=== PATIENT | female | born 2000 | race African-American/Black ===

== ENCOUNTER 2023-03-30 08:18 | Outpatient (CLI) | payer OTHER | END 2023-03-30 08:24 | disposition home or self-care (01) | LOC: PRENATAL 08:18 | PROVIDERS: ATTEND Obstetrics & Gynecology Maternal & Fetal Medicine | DX: O35.9XX0 Maternal care for (suspected) fetal abnormality and damage, unspecified, not applicable or unspecified (principal); O35.3XX0 Maternal care for (suspected) damage to fetus from viral disease in mother, not applicable or unspecified; O44.00 Complete placenta previa NOS or without hemorrhage, unspecified trimester; Z3A.19 19 weeks gestation of pregnancy ==

== ENCOUNTER 2023-05-10 19:31 | Inpatient (IN) | payer OTHER ==
[~2023-05-10] VITALS: Ht 157.5 cm; Wt 0.5 kg
[2023-05-10] MEDS ORDERED: PRENATAL TABLE1 EAC1 (20:13)
[2023-05-10] MEDS ORDERED: ASA81 MG PO (20:13)
[2023-05-10] MEDS ORDERED: RINGERS SOLUTION,LACTATED 1,000 ML IV SCH (20:30)
[2023-05-10 20:48] LABS: HEMATOCRIT 35.1 % (36.0-45.00); MEAN CELL VOLUME 90.5 fL (80.00-100.00); MEAN CORPUSCULAR HEMOGLOBIN 30.9 pg (27.00-32.0); MEAN CORPUSCULAR HGB CONC 34.1 g/dl (32.0-36.0); PLATELET COUNT 336 K/uL (150-450); RED BLOOD COUNT 3.88 M/uL (4.00-6.00); RED CELL DISTRIBUTION WIDTH 14.7 % (11.5-14.5); URINE APPEARANCE Turbid; URINE BILIRRUBIN Negative (NEGATIVE); URINE BLOOD Trace; URINE COLOR Yellow; URINE GLUCOSE Negative (NEGATIVE); URINE LEUKOCYTE Large; URINE NITRATE Negative; URINE PROTEIN 30 (NEGATIVE)
[2023-05-10 20:51] LABS: URINE EPITHELIAL CELLS 58.4 uL (0.0-38.8); URINE RBC 24.5 uL (0.0-20.8)
[2023-05-10 21:14] LABS: URINE WBC > 5548.3 uL (0.0-23.2)
[2023-05-10 21:15] LABS: URINE CRYSTALS FEW /HPF
[2023-05-10] MEDS ORDERED: BETAMETHASONE ACETATE,SOD PHOS 30 MG/5 ML ML ONE (22:21)
[2023-05-10] MEDS ORDERED: MAGNESIUM SULFATE IN WATER 4 GM/100 ML PIGGYBACK IV ONE (22:25)
[2023-05-10] MEDS ORDERED: INDOMETHACIN 25 MG CAPSULE PO SCH (23:14)
[2023-05-10] MEDS ORDERED: BETAMETHASONE ACETATE,SOD PHOS 30 MG/5 ML ML IM ONE (23:15)
[2023-05-10] MEDS ORDERED: AMPICILLIN SODIUM 2,000 MG VIAL IV ONE (23:15)
[2023-05-10] MEDS ORDERED: MAGNESIUM SULFATE IN WATER 4 GM/100 ML PIGGYBACK IV SCH (23:15)
[2023-05-10] MEDS ORDERED: MAGNESIUM SULFATE IN WATER 500 ML IV SCH (23:15)
[2023-05-10] MEDS ORDERED: INDOMETHACIN 50 MG CAPSULE PO ONE (23:15)
[2023-05-11] MEDS ORDERED: AMPICILLIN SODIUM 1,000 MG VIAL IV SCH (01:00)
[2023-05-11] MEDS ORDERED: INDOMETHACIN 25 MG CAPSULE PO SCH ×2 (06:00→08:00)
[2023-05-11] MEDS ORDERED: BETAMETHASONE ACETATE,SOD PHOS 30 MG/5 ML ML IM ONE (22:45)
[2023-05-13] MEDS ORDERED: MAGNESIUM SULFATE IN WATER 4 GM/100 ML PIGGYBACK IV ONE (04:21)
[2023-05-13] MEDS ORDERED: CHLORHEXIDINE GLUCONATE 120 ML BOTTLE TOP ONE (04:41)
[2023-05-13] MEDS ORDERED: ERYTHROMYCIN BASE 1 GM TUBE OP ONE (04:41)
[2023-05-13] MEDS ORDERED: OXYTOCIN 20 UNITS/1000ML RL PIGGYBAG IV ONE (04:42)
[2023-05-13] MEDS ORDERED: OXYTOCIN 20 UNITS/500ML RL PIGGYBAG IV ONE (04:49)
[2023-05-13] MEDS ORDERED: OXYTOCIN 10 UNITS/ML VIAL ONE (04:49)
[2023-05-13] MEDS ORDERED: MAGNESIUM SULFATE IN WATER 4 GM/100 ML PIGGYBACK IV SCH (05:15)
[2023-05-13] MEDS ORDERED: OXYTOCIN 500 ML IV SCH (05:15)
[2023-05-13] MEDS ORDERED: MORPHINE SULFATE 4 MG/ML VIAL IV ONE (06:15)
[2023-05-13] MEDS ORDERED: IBUprofen 400 MG TABLET PO PRN (08:00)
[2023-05-13] MEDS ORDERED: OXYTOCIN 10 UNITS/ML VIAL IM STA (08:30)
[2023-05-13] MEDS ORDERED: CHLORHEXIDINE GLUCONATE 120 ML BOTTLE TOP SCH (08:30)
[2023-05-13] MEDS ORDERED: ERYTHROMYCIN BASE 1 GM TUBE OP SCH (08:30)
[2023-05-13] MEDS ORDERED: LIDOCAINE HCL 1% 200MG/20ML VIAL IJ SCH (08:30)
[2023-05-13] MEDS ORDERED: CEFAZOLIN SODIUM 1,000 MG VIAL ONE (08:44)
[2023-05-13] MEDS ORDERED: CEFAZOLIN SODIUM 1,000 MG in DEXTROSE 5 % IN WATER 50 ML IV SCH (09:00)
[2023-05-13 13:23] LABS: HEMATOCRIT 35.1 % (36.0-45.00); HEMOGLOBIN 11.9 g/dL (12.0-15.00); MEAN CELL VOLUME 89.4 fL (80.00-100.00); MEAN CORPUSCULAR HEMOGLOBIN 30.4 pg (27.00-32.0); PLATELET COUNT 307 K/uL (150-450); RED BLOOD COUNT 3.92 M/uL (4.00-6.00); RED CELL DISTRIBUTION WIDTH 14.2 % (11.5-14.5)
[2023-05-14] MEDS ORDERED: IBUPROFEN800 MG PO (07:26)
== END 2023-05-14 14:29 | disposition home or self-care (01) | DRG 805 ==
LOC: OBS/DEL 19:31 → OB/GYN 22:23 → LDR 22:23 → OB/GYN 05-11 14:32
PROVIDERS: ADMIT Obstetrics & Gynecology; ATTEND Obstetrics & Gynecology
PROC: 4A1HXCZ Monitoring of Products of Conception, Cardiac Rate, External Approach (ICD-10-PCS; 2023-05-10)
PROC: BY4CZZZ Ultrasonography of Second Trimester, Single Fetus (ICD-10-PCS; 2023-05-10)
PROC: BU4CZZZ Ultrasonography of Uterus and Ovaries (ICD-10-PCS; 2023-05-10)
PROC: BY4CZZZ Ultrasonography of Second Trimester, Single Fetus (ICD-10-PCS; 2023-05-11)
PROC: BU4CZZZ Ultrasonography of Uterus and Ovaries (ICD-10-PCS; 2023-05-11)
PROC: 10E0XZZ Delivery of Products of Conception, External Approach (ICD-10-PCS; principal; 2023-05-13)
DX: O60.12X0 Preterm labor second trimester with preterm delivery second trimester, not applicable or unspecified (principal); O41.1230 Chorioamnionitis, third trimester, not applicable or unspecified; Z37.0 Single live birth; O26.872 Cervical shortening, second trimester; O26.842 Uterine size-date discrepancy, second trimester; O42.012 Preterm premature rupture of membranes, onset of labor within 24 hours of rupture, second trimester; O36.8120 Decreased fetal movements, second trimester, not applicable or unspecified; Z3A.25 25 weeks gestation of pregnancy; Z20.822 Contact with and (suspected) exposure to COVID-19